=== PATIENT | male | born 1945 | race Caucasian/White ===

== ENCOUNTER → 2019-03-20 08:28 | Outpatient (BNVA) | payer MEDICARE, OTHER, SELFPAY | PROVIDERS: Family Provider Family Medicine; PCP Family Medicine; Visit Provider Specialist | DX: G25.0 Essential tremor (principal); R25.1 Tremor, unspecified | CPT/HCPCS: 80053; 84443; 99213 ==

== ENCOUNTER 2019-03-20 09:50 | Outpatient (CLI) | payer MEDICARE, OTHER, SELFPAY ==
[2019-03-20 10:38] LABS: Alanine Aminotransferase 15 U/L (0-41); Albumin Level 4.3 g/dL (3.5-5.2); Alkaline Phosphatase 102 IU/L (40-130); Anion Gap 13.7 (5-19); Aspartate Amino Transferase 17 U/L (0-40); Blood Urea Nitrogen 10 mg/dL (8-23); Calcium 9.8 mg/dL (8.5-10.5); Carbon Dioxide 32 mmol/L (22-29); Chloride 101 mmol/L (98-107); Globulin 3.6 g/dL (1.3-4.6); Glucose 116 mg/dL (74-106); Potassium 4.7 mmol/L (3.5-5.1); Sodium 142 mmol/L (136-145); Thyroid Stimulating Hormone 2.37 uIU/mL (0.27-4.20); Total Bilirubin 0.4 mg/dL (0.15-1.2); Total Protein 7.9 g/dL (6.6-8.7)
== END 2019-03-20 09:51 | disposition home or self-care (01) ==
LOC: LAB 09:51
PROVIDERS: Family Provider Family Medicine; PCP Family Medicine; Visit Provider Specialist
DX: R25.1 Tremor, unspecified (principal)
CPT/HCPCS: 80053; 84443

== ENCOUNTER → 2019-09-24 13:47 | Outpatient (BNVA) | payer MEDICARE, OTHER, SELFPAY | PROVIDERS: Family Provider Family Medicine; PCP Family Medicine; Visit Provider Nurse Practitioner Family | DX: Z20.828 Contact with and (suspected) exposure to other viral communicable diseases (principal) | CPT/HCPCS: 87635 ==

== ENCOUNTER → 2019-09-27 14:16 | Outpatient (BNVA) | payer MEDICARE, OTHER, SELFPAY | PROVIDERS: Family Provider Family Medicine; PCP Family Medicine; Visit Provider Internal Medicine | DX: Z20.828 Contact with and (suspected) exposure to other viral communicable diseases (principal) | CPT/HCPCS: 87635 ==

== ENCOUNTER → 2019-10-03 15:19 | Outpatient (BNVA) | payer MEDICARE, OTHER, SELFPAY | PROVIDERS: Family Provider Family Medicine; PCP Family Medicine; Referring Provider Dermatology; Visit Provider Dermatology | DX: Z12.83 Encounter for screening for malignant neoplasm of skin (principal); D18.01 Hemangioma of skin and subcutaneous tissue; L81.8 Other specified disorders of pigmentation; L21.9 Seborrheic dermatitis, unspecified; L82.1 Other seborrheic keratosis; D23.39 Other benign neoplasm of skin of other parts of face; B35.1 Tinea unguium | CPT/HCPCS: 99203; 99204 ==

== ENCOUNTER 2019-10-06 12:22 | Emergency (ER) | payer MEDICARE, OTHER, SELFPAY ==
[2019-10-06] VITALS (27 sets, daily range): BP systolic 113–171; BP diastolic 69–134; PULSE 55–66; RESP 6–99; O2SAT 78–100; BMI 23.1
[2019-10-06] MEDS: succinylcholine 20 mg/mL SDV 10mL 90 MG IVP (12:43)
[2019-10-06] MEDS: propofol 1,000 MG/100 ML INJ 2.4 MG (12:45)
[2019-10-06] MEDS: fentaNYL 50 mcg/mL INJ 2mL 100 MCG IVP (12:56)
[2019-10-06] MEDS: fentaNYL 50 mcg/mL INJ 2mL 200 MCG IVP (13:10)
--- NOTE | 2019-10-06 13:15 | CTR_ITS ---
PROCEDURE INFORMATION: Exam: CT Head Without Contrast Exam date and time: 10/06/2019 1:17 PM Age: 73 years old Clinical indication: Injury or trauma; Initial encounter; Blunt trauma (contusions or hematomas); With loss of consciousness; Not specified; Patient HX: Approx. 15ft fall TECHNIQUE: Imaging protocol: Computed tomography of the head without contrast. Radiation optimization: All CT scans at this facility use at least one of these dose optimization techniques: automated exposure control; mA and/or kV adjustment per patient size (includes targeted exams where dose is matched to clinical indication); or iterative reconstruction. COMPARISON: No relevant prior studies available. RADIATION DOSE METRICS: Total DLP (mGy-cm): 1520.3 FINDINGS: Brain: 1 mm punctate hyperdensities in the right parietal white matter (series 5: Images 35 and 45), suggesting small hemorrhages in association with trauma. No significant surrounding edema or mass effect. Symmetric prominence of the cortical and cerebellar sulci. Mild small vessel ischemic change. Ventricles: Normal configuration of the ventricles. Bones/joints: No acute calvarial injury. Sinuses: No sinus fluid. Mastoid air cells: No mastoid effusion. Vasculature: Vascular and dural calcifications. Soft tissues: Large scalp hematoma and subcutaneous emphysema about the right posterior vertex. Multiple cutaneous calcifications. CT/CT head wo con* [id number] IMPRESSION: 1. Large scalp hematoma and subcutaneous emphysema about the right posterior vertex. 2. 1 mm punctate hyperdensities in the right parietal white matter (series 5: Images 35 and 45), suggesting small hemorrhages in association with trauma. The aforementioned findings initiated a critical results communication pathway. An addendum will be issued at the time of clincian notification. Radiation Dose CTDIVOL = (mGy): DLP = 1520.3 (mGy-cm)
--- NOTE | 2019-10-06 13:15 | CTR_ITS ---
PROCEDURE INFORMATION: Exam: CT Chest With Contrast Exam date and time: 10/06/2019 1:28 PM Age: 73 years old Clinical indication: Injury or trauma; Initial encounter; Generalized; Blunt trauma (contusions or hematomas); Patient HX: Approx. 15 ft fall TECHNIQUE: Imaging protocol: Computed tomography of the chest with intravenous contrast. Radiation optimization: All CT scans at this facility use at least one of these dose optimization techniques: automated exposure control; mA and/or kV adjustment per patient size (includes targeted exams where dose is matched to clinical indication); or iterative reconstruction. Contrast material: VISI 320; Contrast volume: 95 ml; Contrast route: INTRAVENOUS (IV); COMPARISON: No relevant prior studies available. RADIATION DOSE METRICS: Total DLP (mGy-cm): 2509.03 FINDINGS: Tubes, catheters and devices: Endotracheal tube/ Lungs: Minimal bibasilar atelectasis. Pleural space: Right pleural tube, very small right pneumothorax. No pleural effusion. Heart: No cardiomegaly. No pericardial effusion. Aorta: No aortic aneurysm. Lymph nodes: No significant adenopathy. Bones/joints: Nondisplaced right posterior 10th rib fracture. Soft tissues: Subcutaneous emphysema in the right chest wall. IMPRESSION: Nondisplaced right posterior 10th rib fracture. Very small right pneumothorax, right pleural tube in place. Endotracheal tube. PROCEDURE INFORMATION: Exam: CT Abdomen And Pelvis With Contrast Exam date and time: 10/06/2019 1:28 PM Age: 73 years old Clinical indication: Injury or trauma; Initial encounter; Generalized; Blunt trauma (contusions or hematomas); Patient HX: Approx. 15 ft fall TECHNIQUE: Imaging protocol: Computed tomography of the abdomen and pelvis with intravenous contrast. Radiation optimization: All CT scans at this facility use at least one of these dose optimization techniques: automated exposure control; mA and/or kV adjustment per patient size (includes targeted exams where dose is matched to clinical indication); or iterative reconstruction. Contrast material: VISI 320; Contrast volume: 95 ml; Contrast route: INTRAVENOUS (IV); COMPARISON: No relevant prior studies available. RADIATION DOSE METRICS: Total DLP (mGy-cm): 2509.03 FINDINGS: Liver: No mass. Gallbladder and bile ducts: Unremarkable. No ductal dilation. Pancreas: Normal. No ductal dilation. Spleen: Normal. No splenomegaly. Adrenals: Normal. No mass. Kidneys and ureters: Normal. No hydronephrosis. Stomach and bowel: No acute findings. No obstruction. No mucosal thickening. Appendix: No evidence of appendicitis. Intraperitoneal space: Unremarkable. No free air. No significant fluid collection. Vasculature: No abdominal aortic aneurysm. Lymph nodes: No significant adenopathy. Bladder: Unremarkable as visualized. Reproductive: Unremarkable as visualized. Bones/joints: No acute findings. Soft tissues: Left femoral prosthesis, metallic artifact. CT/CT chest abd pel w con* IMPRESSION: No acute findings. Radiation Dose CTDIVOL = (mGy): DLP = 2509.03~2509.03 (mGy-cm)
--- NOTE | 2019-10-06 13:15 | CTR_ITS ---
PROCEDURE INFORMATION: Exam: CT Cervical Spine Without Contrast Exam date and time: 10/06/2019 1:17 PM Age: 73 years old Clinical indication: Injury or trauma; Initial encounter; Blunt trauma; Patient HX: Approx. 15ft fall TECHNIQUE: Imaging protocol: Computed tomography images of the cervical spine without contrast. Radiation optimization: All CT scans at this facility use at least one of these dose optimization techniques: automated exposure control; mA and/or kV adjustment per patient size (includes targeted exams where dose is matched to clinical indication); or iterative reconstruction. COMPARISON: No relevant prior studies available. RADIATION DOSE METRICS: Total DLP (mGy-cm): 772.83 FINDINGS: Tubes, catheters and devices: Endotracheal tube. Vertebrae: No acute bony injury or malalignment in the cervical spine. Discs/Spinal canal/Neural foramina: Multilevel spinal stenosis in association with disc bulging and degenerative change. The AP dimension of the central canal measures 6 mm at the C5-C6 level. Note that assessment of disc, spinal cord, and nerve root pathology is limited in the absence of intrathecal contrast. Soft tissues: Punctate calcification in the left masseter muscle. Ligamentous calcification. Lungs: Unremarkable apices as visualized. CT/CT cervical spin wo con* [id number] IMPRESSION: 1. No acute bony injury or malalignment in the cervical spine. 2. Nontraumatic findings as described above. Radiation Dose CTDIVOL = (mGy): DLP = 772.83 (mGy-cm)
[2019-10-06] MEDS: iodixanol 320 mg/mL 100mL Btl IV (13:27)
[2019-10-06] MEDS: midazolam 1 mg/mL INJ 2 mL 5 MG IVP (13:39)
--- NOTE | 2019-10-06 13:40 | XRR_ITS ---
PROCEDURE INFORMATION: Exam: XR Chest, 1 View Exam date and time: 10/06/2019 1:41 PM Age: 73 years old Clinical indication: Device placement; Other: Chest tube and et; Additional info: Post intubation TECHNIQUE: Imaging protocol: XR of the chest Views: 1 view. COMPARISON: CR Chest 1 [place] [id number] 03/04/2016 4:05 PM FINDINGS: Lungs: Minimal left basilar atelectasis. Pleural space: Right pleural tube in place, no definite pneumothorax. Endotracheal tube tip approximately 5 cm above the eulalia. Heart/Mediastinum: Possible minimal cardiomegaly. Bones/joints: No acute findings. XR/XR chest 1V portable [id number] IMPRESSION: Right pleural tube, endotracheal tube.
[2019-10-06 13:41] LABS: Alveolar-Arterial Oxygen Gradi 53.7 mmHg (5-10); Arterial Blood Gas Hematocrit 44.3 % (42-52); Base Excess ABG 1.9 mmol/L (-2.0-2.0); Blood Gas Allen Test Pos; Blood Gas Operator Identificat glc; Blood Gas Sample Site Radial, right; Blood Gas Sample Type Arterial; Carboxyhemoglobin 0.7 %THgb (0.4-20.1); HCO3 ABG 27.1 mmol/L (22-26); HGB O2 Sat 98.5 % (95-100); Ionized Calcium Level - ABG 1.2 mmol/L (1.1-1.4); Methemoglobin 0.9 % (0.4-1.5); Oxygen Device VENT; Oxygen Saturation ABG > 100.0; Potassium Level - ABG 4.3 mmol/L (3.5-5.0); Total Hemoglobin 14.4 g/dL (14-18)
[2019-10-06 13:42] LABS: ABG PCO2 43.3 mmHg (35-45); ABG PH Result 7.41 (7.35-7.45)
[2019-10-06] MEDS: ceFAZolin 1,000 MG in sodium chloride 0.9% (plus) 50 ML 100 MG IV (14:15)
--- NOTE | 2019-10-06 15:05 | W.ED.FALL ---
HPI - Fall General: Chief Complaint: Fall Stated Complaint: head injury Time Seen by Provider: 10/06/19 13:28 History of Present Illness: HPI Narrative: 73-year-old male presents via private vehicle on initial arrival he is lethargic with a GCS of 7-8. He is hypoxic and minimally responsive. Sats are in the mid to low 80s. He is accompanied by his grandson who reports he fell off a ladder approximately 15 feet he hit the back of his head on a rock as he landed and landed on his right side. He is been poorly responsive for him since then. In the exam room patient will open his eyes to verbal command he gives no verbal response at all and he will withdraw from pain giving him Glascow coma score of 8 however at times he will not open his eyes and not respond to pain at all is in addition, given him a GCS of 3. In addition to this he is hypoxic. Review of Systems General: Reports: ROS unobtainable due to medical condition and ROS unobtainable due to mental status PFS ED PFSH: Medical History Essential tremor History of pulmonary embolism Hypercholesteremia Hypertension Seborrheic dermatitis of scalp Family History Other CAD (coronary artery disease) Diabetes Hypertension Social History Smoking and tobacco status: never smoked Alcohol intake: current Alcohol intake frequency: few times a week Alcohol type: wine Physical Exam Const: EXAM LIMITATIONS: altered mental status GENERAL APPEARANCE: lethargic ORIENTATION/CONSCIOUSNESS: Yes lethargic HENMT: COMMON NORMALS: normocephalic HEAD & SCALP: normocephalic OTHER: Stellate scalp laceration. After patient had been stabilized the back of the head was shaved and the laceration was stapled at its center it was difficult to get good approximation however there is no active bleeding. Eye: COMMON NORMALS: Equal, round and reactive pupils present, conjunctivae normal and no scleral icterus CONJUNCTIVA: Yes conjunctivae normal PUPIL: Yes Equal, round and reactive pupils present Resp: COMMON NORMALS: No retractions, No use of accessory muscles and clear to auscultation bilaterally AUSCULTATION: clear to auscultation bilaterally Cardio: COMMON NORMALS: regular rate, regular rhythm and No murmurs present (Cardio) RATE: regular rate RHYTHM: regular rhythm GI: COMMON NORMALS: Soft to palpation and No hepatosplenomegaly present AUSCULTATION: Yes normoactive bowel sounds PALPATION: Yes Soft to palpation, No Tenderness to palpation present (GI), No Guarding due to palpation present (GI) and Yes No hepatosplenomegaly present Extremity: COMMON NORMALS: normal to inspection, capillary refill normal, no clubbing, cyanosis or edema, no calf tenderness and no pedal edema Neuro: SENSORIUM/ORIENTATION: Yes lethargic Procedures Chest Tube Chest Tube 1: Chest Tube Location: right, mid axillary line and fourth interspace Size of Tube (cm): 28 Chest Tube Prep: Yes betadine prep Incision Made With: #11 blade Post Procedure: sutured to skin and sterile dressing applied Tube Drainage: none Post Procedure CXR?: Yes Patient Tolerated Procedure: Yes Progress: Initial needle decompression of the chest on the right side see notations. After that emergent placement of right-sided chest tube with a significant improvement of oxygenation after these procedures. Intubation sedative: Etomidate Mg Given: 40 paralytic: Succinylcholine Mg Given: 90 Laryngoscope: fiber optic video scope Assist Device Used: fiber optic device ET Tube Size: 8.5 ET Tube Uncuffed: Yes Tube Secured Depth (cm): 24 Tube Secured Location: teeth Tube Placement Confirmation: visualized tube passing through cords, equal breath sounds bilaterally, no breath sounds over epigastrium and confirmation by capnometry Patient Tolerated Procedure: well Intubation Complications: none Course Vital Signs: Vital signs: Vital Signs Pulse Rate 60 10/06/19 14:43 Respiratory Rate 14 10/06/19 14:43 Blood Pressure 148/79 10/06/19 14:43 Pulse Oximetry 97 10/06/19 14:43 MDM - Fall MDM Narrative: Medical decision making narrative: On initial presentation patient's Angie Coma Scale and hypoxia indicated intubation he was emergently intubated. Initially his sats improved and he had good tidal capnography however after a few minutes his sats suddenly dropped and whereas there had been good auscultate will sounds on the right suddenly there were no auscultated bowel breath sounds. Patient was emergently needle decompressed was significant outflow of air after needle decompression and he had some improvement of his sats. A right chest tube was then urgently placed and sutured into place with good improvement of saturations after placement of chest tube. CT head neck chest abdomen pelvis completed there is significant chronic pathology of the neck but nothing reported acute. I did discuss with the [facility] radiologist. There is punctate bleeding in the right parietal area. On the CT chest abdomen and pelvis there is a small residual right pneumothorax with a chest tube in place. Additionally there is a right 10th posterior rib fracture. The remainder the abdomen and pelvis are unremarkable. Patient transferred to [facility] due to hospitals in [place] being on divert. Patient stabilized and was transferred discussed with the family. Lab Data: Labs: Lab Results 10/06/19 Range/Units 13:31 Specimen Type Arterial Sample Site Radial, right ABG pH 7.41 (7.35-7.45) ABG pCO2 43.3 (35-45) mmHg ABG pO2 241.0 H (80.0-100.0) mmH g ABG HCO3 27.1 H (22-26) mmol/L ABG O2 Saturation > 100.0 ABG Base Excess 1.9 (-2.0-2.0) mmol/ L Jesus Test Pos A-a O2 Gradient 53.7 H (5-10) mmHg Hematocrit 44.3 (42-52) % Hgb O2 Saturation 98.5 (95-100) % Carboxyhemoglobin 0.7 (0.4-20.1) %THgb Methemoglobin 0.9 (0.4-1.5) % Total Hemoglobin 14.4 (14-18) g/dL Sodium 136.0 (131-143) mmol/L Potassium 4.3 (3.5-5.0) mmol/L Glucose 130.0 H (70-115) mg/dL Ionized Calcium 1.2 (1.1-1.4) mmol/L O2 Delivery Device Vent FiO2 100.0 % Tidal Volume 0.50 PEEP 5.0 cmH20 Senior Quality Control Inspector ID [id number] Critical Care Time Critical Care Time: Critical Care Time: Yes Total Critical Care Time: 90 Attestation: This case had a high probability of a clinically significant, sudden, or life threatening deterioration of this patient's condition which required my full and direct attention, intervention and personal management. Discharge Plan Discharge Patient Disposition: Transfer to ED Clinical Impression: Closed head injury with petechial brain hemorrhage, Closed traumatic fracture of ribs of right side with pneumothorax, Fall on and from ladder causing accidental injury Prescriptions: No Action potassium chloride 10 mEq capsule, extended release 10 meq PO DAILY RF: 0 cholecalciferol (vitamin D3) [Vitamin D3] 2,000 unit tablet 2,000 unit PO DAILY RF: 0 propranolol 40 mg tablet 40 mg PO BID Qty: 60 RF: 11 azithromycin 250 mg tablet See Rx Instructions PO .COMPLEX Qty: 6 RF: 0 ciclopirox 8 % solution 1 applic TOPICAL DAILY 28 Days Qty: 6.6 RF: 3 ketoconazole 2 % shampoo 1 applic TOPICAL .3 times weekly Qty: 120 RF: 3 ketoconazole 2 % cream 1 applic TOPICAL DAILY Qty: 30 RF: 4 simvastatin 40 mg tablet 40 mg PO DAILY RF: 0 Pradaxa 150 mg capsule 150 mg PO BID 90 Days Qty: 180 RF: 3 furosemide 20 mg tablet 20 mg PO DAILY PRN (Reason: edema) Qty: 30 RF: 6 primidone 50 mg tablet 50 mg PO DAILY PRN (Reason: tremor(s)) RF: 0 Referrals: Valencia Kwon MD [Primary Care Provider] - Interventions: ED Discharge Assessment Last Done: 10/06/19 14:43 ED Charges Last Done: 10/06/19 14:47 Discharge Date/Time: 10/06/19 14:55 Coding Level of Care Code ED Cigarette Making Machine Operator for Ellis Miller
== END 2019-10-06 14:55 ==
PROVIDERS: Emergency Provider Family Medicine; PCP Family Medicine
DX: R23.3 Spontaneous ecchymoses (principal); S27.0XXA Traumatic pneumothorax, initial encounter; S22.41XA Multiple fractures of ribs, right side, initial encounter for closed fracture; W11.XXXA Fall on and from ladder, initial encounter; I10 Essential (primary) hypertension
CPT/HCPCS: 12345; 31500; 32551; 36600; 51702; 70450; 71045; 71260; 72125; 74177; 80051; 82810; 83986; 87070; 87205; 94002; 94799; 96365; 96375; 96376; 99284; 99291; J0330; J0690; J2250; J2704; J3010; J3490; Q9967

== ENCOUNTER 2019-10-31 08:13 | Outpatient (RCR) | payer MEDICARE, OTHER, SELFPAY | END 2019-11-21 23:59 | disposition home or self-care (01) | LOC: SST 08:13 | PROVIDERS: PCP Family Medicine; Referring Provider Physical Medicine & Rehabilitation; Visit Provider Physical Medicine & Rehabilitation | DX: S06.890S Other specified intracranial injury without loss of consciousness, sequela (principal) | CPT/HCPCS: 92507; 92523 ==

== ENCOUNTER 2019-11-12 14:03 | Outpatient (CLI) | payer MEDICARE, OTHER, SELFPAY ==
--- NOTE | 2019-11-12 14:17 | XRR_ITS ---
PROCEDURE INFORMATION: Exam: XR Cervical Spine, 4 or 5 Views Exam date and time: 11/12/2019 2:36 PM Age: 73 years old Clinical indication: Condition or disease; Other: C5/c6 closed fracture TECHNIQUE: Imaging protocol: XR of the cervical spine, 4 or 5 views. COMPARISON: CT cervical spin wo con* [id number] 10/06/2019 1:05 PM FINDINGS: Vertebrae: There is an anterior fusion plate at C5/6. No evidence for hardware failure. No translation with flexion or extension.Degenerative change is identified in the spine. There is disc space narrowing and osteophyte formation especially at C6/7. Soft tissues: Unremarkable. XR/XR cervical spine 4-5V [id number] IMPRESSION: There are no acute concerning abnormalities.
== END 2019-11-12 14:04 | disposition home or self-care (01) ==
LOC: RAD 14:12
PROVIDERS: PCP Family Medicine; Visit Provider Family Medicine
DX: S12.490A Other displaced fracture of fifth cervical vertebra, initial encounter for closed fracture (principal); S12.500A Unspecified displaced fracture of sixth cervical vertebra, initial encounter for closed fracture; X58.XXXA Exposure to other specified factors, initial encounter
CPT/HCPCS: 72040; 72050

== ENCOUNTER 2019-11-22 06:00 | Outpatient (RCR) | payer MEDICARE, OTHER, SELFPAY | END 2019-12-22 23:59 | disposition home or self-care (01) | LOC: SST 06:00 | PROVIDERS: PCP Family Medicine; Referring Provider Physical Medicine & Rehabilitation; Visit Provider Physical Medicine & Rehabilitation | DX: S06.9X0A Unspecified intracranial injury without loss of consciousness, initial encounter (principal); W19.XXXA Unspecified fall, initial encounter; Y93.9 Activity, unspecified | CPT/HCPCS: 92507 ==

== ENCOUNTER 2019-12-23 06:00 | Outpatient (RCR) | payer MEDICARE, OTHER, SELFPAY | END 2020-01-21 23:59 | disposition home or self-care (01) | LOC: SST 06:00 | PROVIDERS: PCP Family Medicine; Referring Provider Physical Medicine & Rehabilitation; Visit Provider Physical Medicine & Rehabilitation | DX: S06.9X0S Unspecified intracranial injury without loss of consciousness, sequela (principal); W19.XXXS Unspecified fall, sequela | CPT/HCPCS: 92507 ==

== ENCOUNTER 2020-01-22 06:00 | Outpatient (RCR) | payer MEDICARE, OTHER, SELFPAY | END 2020-02-21 23:59 | disposition home or self-care (01) | LOC: SST 06:00 | PROVIDERS: PCP Family Medicine; Referring Provider Physical Medicine & Rehabilitation; Visit Provider Physical Medicine & Rehabilitation | DX: S06.9X9S Unspecified intracranial injury with loss of consciousness of unspecified duration, sequela (principal) | CPT/HCPCS: 92507 ==

== ENCOUNTER → 2020-02-14 11:17 | Outpatient (BNVA) | payer MEDICARE, OTHER, SELFPAY | PROVIDERS: PCP Family Medicine; Visit Provider Nurse Practitioner Family | DX: Z20.828 Contact with and (suspected) exposure to other viral communicable diseases (principal) | CPT/HCPCS: 87635 ==

== ENCOUNTER 2020-02-22 06:00 | Outpatient (RCR) | payer MEDICARE, OTHER, SELFPAY | END 2020-03-23 23:59 | disposition home or self-care (01) | LOC: SST 06:00 | PROVIDERS: PCP Family Medicine; Referring Provider Physical Medicine & Rehabilitation; Visit Provider Physical Medicine & Rehabilitation | DX: R47.02 Dysphasia (principal) | CPT/HCPCS: 92507 ==

== ENCOUNTER → 2020-03-19 09:17 | Outpatient (BNVA) | payer MEDICARE, OTHER, SELFPAY | PROVIDERS: PCP Family Medicine; Visit Provider Specialist | DX: G25.0 Essential tremor (principal); S06.0X9D Concussion with loss of consciousness of unspecified duration, subsequent encounter; S12.490A Other displaced fracture of fifth cervical vertebra, initial encounter for closed fracture; Y93.9 Activity, unspecified; R41.3 Other amnesia | CPT/HCPCS: 96116; 99214 ==

== ENCOUNTER 2020-03-24 06:00 | Outpatient (RCR) | payer MEDICARE, OTHER, SELFPAY | END 2020-04-20 23:59 | disposition home or self-care (01) | LOC: SST 06:00 | PROVIDERS: PCP Family Medicine; Referring Provider Physical Medicine & Rehabilitation; Visit Provider Physical Medicine & Rehabilitation | DX: S06.9X0S Unspecified intracranial injury without loss of consciousness, sequela (principal); X58.XXXS Exposure to other specified factors, sequela | CPT/HCPCS: 92507 ==

== ENCOUNTER 2020-04-21 06:00 | Outpatient (RCR) | payer MEDICARE, OTHER, SELFPAY | END 2020-05-21 23:59 | disposition home or self-care (01) | LOC: SST 06:00 | PROVIDERS: PCP Family Medicine; Referring Provider Physical Medicine & Rehabilitation; Visit Provider Physical Medicine & Rehabilitation | DX: S06.9X9S Unspecified intracranial injury with loss of consciousness of unspecified duration, sequela (principal); X58.XXXS Exposure to other specified factors, sequela | CPT/HCPCS: 92507 ==

== ENCOUNTER 2020-05-13 15:21 | Outpatient (CLI) | payer MEDICARE, OTHER, SELFPAY ==
--- NOTE | 2020-05-13 15:00 | USCV_ITS ---
Hayes Cisneros Age: 74 Gender: M : 1945 Exam Date: 05/13/2020 15:42 Ordering Phys: Jess Jeff MD ([email or web address]) Technologist: MATHEW [place] [facility] [place]: HISTORY OF PE. HISTORY: History of PE PROCEDURES: The venous duplex Doppler examination of both lower extremities was performed in the standard fashion. The following venous structures were evaluated: common femoral vein, profunda vein, proximal portion of the greater saphenous vein, superficial femoral vein, and the popliteal vein. In addition, the posterior tibial and peroneal trunk were evaluated. Serial compression, augmentation maneuvers, and spectral Doppler flow evaluation were performed. FINDINGS: No DVT seen in any vessel examined CONCLUSIONS No evidence of DVT in the above-mentioned identifiable veins. Dr Isis Escudero MD [facility] (Electronically Signed) Final Date: 14 May 2020 09:17 S
== END 2020-05-13 15:22 | disposition home or self-care (01) ==
LOC: RAD 15:26
PROVIDERS: PCP Family Medicine; Visit Provider Internal Medicine Cardiovascular Disease
DX: I82.409 Acute embolism and thrombosis of unspecified deep veins of unspecified lower extremity (principal); Z86.711 Personal history of pulmonary embolism
CPT/HCPCS: 93970

== ENCOUNTER → 2020-08-18 08:01 | Outpatient (BNVA) | payer MEDICARE, OTHER, SELFPAY | PROVIDERS: PCP Family Medicine; Visit Provider Specialist | DX: G25.0 Essential tremor (principal); S06.0X9D Concussion with loss of consciousness of unspecified duration, subsequent encounter; S12.490D Other displaced fracture of fifth cervical vertebra, subsequent encounter for fracture with routine healing; Y93.9 Activity, unspecified; R20.0 Anesthesia of skin; I10 Essential (primary) hypertension | CPT/HCPCS: 99213; 99214 ==

== ENCOUNTER → 2020-08-27 10:05 | Outpatient (BNVA) | payer MEDICARE, OTHER, SELFPAY | PROVIDERS: PCP Family Medicine; Visit Provider Family Medicine | DX: I10 Essential (primary) hypertension (principal); R20.0 Anesthesia of skin; Z00.00 Encounter for general adult medical examination without abnormal findings; G25.0 Essential tremor; E78.00 Pure hypercholesterolemia, unspecified | CPT/HCPCS: 80053; 80061; 84443; 85025 ==

== ENCOUNTER → 2020-12-03 08:16 | Outpatient (BNVA) | payer MEDICARE, OTHER, SELFPAY | PROVIDERS: PCP Family Medicine; Visit Provider Urology | DX: Z12.5 Encounter for screening for malignant neoplasm of prostate (principal); N52.9 Male erectile dysfunction, unspecified; N40.1 Benign prostatic hyperplasia with lower urinary tract symptoms | CPT/HCPCS: 81003; 84153 ==

== ENCOUNTER → 2021-08-18 08:17 | Outpatient (BNVA) | payer MEDICARE, OTHER, SELFPAY | PROVIDERS: PCP Family Medicine; Visit Provider Specialist | DX: G25.0 Essential tremor (principal); Z87.820 Personal history of traumatic brain injury | CPT/HCPCS: 99213; 99214 ==

== ENCOUNTER 2021-08-25 20:00 | Outpatient (CLI) | payer MEDICARE, OTHER, SELFPAY | END 2021-08-25 20:01 | disposition home or self-care (01) | LOC: SLEEP 08-26 08:49 | PROVIDERS: PCP Family Medicine; Visit Provider Family Medicine | DX: G47.33 Obstructive sleep apnea (adult) (pediatric) (principal) | CPT/HCPCS: 95811 ==

== ENCOUNTER → 2021-11-25 09:48 | Outpatient (BNVA) | payer MEDICARE, OTHER, SELFPAY | PROVIDERS: PCP Family Medicine; Visit Provider Podiatrist Foot & Ankle Surgery | DX: S92.425A Nondisplaced fracture of distal phalanx of left great toe, initial encounter for closed fracture (principal); W22.8XXA Striking against or struck by other objects, initial encounter | CPT/HCPCS: 73610; 99204 ==

== ENCOUNTER → 2021-11-30 09:14 | Outpatient (BNVA) | payer MEDICARE, OTHER, SELFPAY | PROVIDERS: PCP Family Medicine; Visit Provider Nurse Practitioner Family | DX: N40.1 Benign prostatic hyperplasia with lower urinary tract symptoms (principal); N52.9 Male erectile dysfunction, unspecified; R35.1 Nocturia; N13.8 Other obstructive and reflux uropathy | CPT/HCPCS: 51741; 51798; 81003; 99213; 99214 ==

== ENCOUNTER → 2021-12-09 09:05 | Outpatient (BNVA) | payer MEDICARE, OTHER, SELFPAY | PROVIDERS: PCP Family Medicine; Visit Provider Podiatrist Foot & Ankle Surgery | DX: S92.425D Nondisplaced fracture of distal phalanx of left great toe, subsequent encounter for fracture with routine healing (principal); W22.09XD Striking against other stationary object, subsequent encounter | CPT/HCPCS: 99213 ==

== ENCOUNTER → 2021-12-29 14:08 | Outpatient (BNVA) | payer MEDICARE, OTHER, SELFPAY | PROVIDERS: PCP Family Medicine; Visit Provider Nurse Practitioner Family | DX: I27.82 Chronic pulmonary embolism (principal); R06.00 Dyspnea, unspecified; I26.99 Other pulmonary embolism without acute cor pulmonale; E78.00 Pure hypercholesterolemia, unspecified | CPT/HCPCS: 36415; 80048; 83880; 85025; 85378; 93005; 99214 ==

== ENCOUNTER 2021-12-31 07:21 | Outpatient (CLI) | payer MEDICARE, OTHER, SELFPAY ==
--- NOTE | 2021-12-31 07:30 | CT_ITS ---
WS: [id number] CT CHEST ANGIOGRAPHY WITH REFORMATS HISTORY: acute dyspnea at rest and with exertion TECHNIQUE: Contiguous axial images are obtained through the chest during arterial injection of intrav enous contrast. Images are reconstructed to evaluate the pulmonary arteries. MIP imaging also reviewe d. All CT scans at [facility] use at least one of these dose optimization techniques: automat ed exposure control; mA and/or kV adjustment per patient size (includes targeted exams where dose is matched to clinical indication); or iterative reconstruction. CONTRAST: Omnipaque 350; 95 mL IV. DLP: 604.54 mGy.cm COMPARISON: 10/06/2019 Bilateral upper and lower lobe pulmonary emboli are identified. Nonocclusive filling defect in the di stal RIGHT lower lobe pulmonary artery. There are additional filling defects extending into the segme ntal and subsegmental branches bilaterally, greatest in the lower lobes. There are additional filling defects in the upper lobes also. Lung volumes are decreased due to poor inspiration. Mild RIGHT hear t enlargement. No definite RIGHT heart strain. Small hiatal hernia. Bilateral enlarged hilar lymph nodes measuring up to 13 mm. These could be react alfredito. No change in the 6 mm low-attenuation nodule in the RIGHT lobe of the liver. No adrenal mass. At rophied pancreas. No destructive bone lesions. CT/CT angio chest PE protcl [id number] IMPRESSION: 1. Bilateral pulmonary emboli. These are predominantly within the segmental an d subsegmental branches with the greatest distribution in the lower lobes. 2. Mild RIGHT heart enlargement. 3. No pneumonia. 4. Bilateral hilar lymphadenopathy may be reactive. Notified ANGELINE Cintron at 12/31/2021 9:49 AM.
[2021-12-31] MEDS: iohexol 350 mg/mL 500 mL Btl (per mL) IV (07:57)
== END 2021-12-31 07:22 | disposition home or self-care (01) ==
LOC: RAD 07:23
PROVIDERS: PCP Family Medicine; Visit Provider Nurse Practitioner Family
DX: I26.99 Other pulmonary embolism without acute cor pulmonale (principal); I51.7 Cardiomegaly
CPT/HCPCS: 71275

== ENCOUNTER → 2022-01-29 08:59 | Outpatient (BNVA) | payer MEDICARE, OTHER, SELFPAY | PROVIDERS: PCP Family Medicine; Visit Provider Urology | DX: N40.1 Benign prostatic hyperplasia with lower urinary tract symptoms (principal); R35.1 Nocturia; G47.33 Obstructive sleep apnea (adult) (pediatric); Z99.89 Dependence on other enabling machines and devices | CPT/HCPCS: 81003; 99213 ==

== ENCOUNTER → 2022-03-08 15:23 | Outpatient (BNVA) | payer MEDICARE, OTHER, SELFPAY | PROVIDERS: PCP Family Medicine; Visit Provider Internal Medicine | DX: I26.09 Other pulmonary embolism with acute cor pulmonale (principal); I10 Essential (primary) hypertension; R06.02 Shortness of breath | CPT/HCPCS: 99214 ==

== ENCOUNTER 2022-03-25 20:00 | Outpatient (CLI) | payer MEDICARE, OTHER, SELFPAY | END 2022-03-25 20:01 | disposition home or self-care (01) | LOC: SLEEP 03-26 06:02 | PROVIDERS: PCP Family Medicine; Visit Provider Family Medicine | DX: G47.33 Obstructive sleep apnea (adult) (pediatric) (principal) | CPT/HCPCS: 95811 ==

== ENCOUNTER 2022-03-29 07:41 | Outpatient (CLI) | payer MEDICARE, OTHER, SELFPAY ==
--- NOTE | 2022-03-29 08:00 | USCV_ITS ---
Hayes Cisneros Age: 76 Gender: M : 1945 Exam Date: 03/29/2022 08:26 Ordering Phys: Ryan Rabago M.D ([email or web address]) Technologist: Magen Avila [place] [facility] [place]: shortness of breath BP: 130 / 72 HR: 54 Rhythm: Sinus Technical Quality: Adequate MEASUREMENTS (Male / Female) Normal Values 2D ECHO LV Diastolic Diameter PLAX 5.4 cm 4.2 - 5.9 / 3.9 - 5.3 cm LV Systolic Diameter PLAX 3.2 cm IVS Diastolic Thickness 1.1 cm 0.6 - 1.0 / 0.6 - 0.9 cm IVS Systolic Thickness 1.5 cm LVPW Diastolic Thickness 1.1 cm 0.6 - 1.0 / 0.6 - 0.9 cm LVPW Systolic Thickness 1.7 cm LV Ejection Fraction 2D Teich 71.2 % LV Ejection Fraction MOD 2C 66.0 % LV Ejection Fraction 2C AL 67.4 % LA Diameter 3.6 cm LA Width 3.9 cm LA Height 5.7 cm RA Width 5.3 cm RA Height 5.3 cm Aorta at Sinotubular Diameter 2.4 cm IVC Diameter 1.8 cm M-MODE Aortic Annulus Diameter 2.9 cm LA Ao Ratio MM 1.4 MV E Point Septal Separation 0.5 cm DOPPLER AV Peak Velocity 156.3 cm/s LVOT Peak Velocity 102.0 cm/s MV Peak Velocity 87.0 cm/s MV Area PHT 4.4 cm squared Mitral E to A Ratio 1.2 MV E' Velocity 43.0 cm/s Mitral E to MV E' Ratio 7.0 Mitral E to LV E' Lateral Ratio 6.8 Mitral E to LV E' Septal Ratio 7.2 TR Peak Velocity 413.8 cm/s TR Peak Gradient 68.5 mmHg TR Mean Velocity 332.2 cm/s TR Mean Gradient 46.8 mmHg TR Velocity Time Integral 138.4 cm Right Atrial Pressure 3.0 mmHg Pulmonary Artery Systolic Pressu 71.5 mmHg PV Peak Velocity 82.7 cm/s RV Acceleration Time 0.1 s RV Ejection Time 0.4 s RV AcT/ET 0.3 FINDINGS Left Ventricle Left ventricle is normal in size. LV systolic function is normal with EF 55 to 60%. No regional wall motion abnormalities are seen. Diastolic function is normal. Right Ventricle Normal in size and function Right Atrium Dilated. Left Atrium Normal in size Mitral Valve Structurally normal mitral valve. Trace mitral regurgitation. Aortic Valve Structurally normal aortic valve. No significant stenosis or regurgitation seen. Tricuspid Valve Mild tricuspid regurgitation. Insufficient TR jet to evaluate RVSP. Pulmonic Valve Not well-visualized. Mild pulmonic regurgitation. Pericardium Normal Aorta Normal in size IVC Appears to be normal CONCLUSIONS Left ventricle is normal in size. LV systolic function is normal with EF 55 to 60% Diastolic function is normal. Right atrial dilation Trace mitral regurgitation Mild tricuspid regurgitation Mild pulmonic regurgitation Compared to prior echocardiogram from 2019, no significant changes seen. Ryan Rabago MD (Electronically Signed) Final Date: 06 April 2022 17:22 S
== END 2022-03-29 07:42 | disposition home or self-care (01) ==
LOC: RAD 07:42
PROVIDERS: PCP Family Medicine; Visit Provider Internal Medicine
DX: R06.02 Shortness of breath (principal); I08.1 Rheumatic disorders of both mitral and tricuspid valves
CPT/HCPCS: 93306

== ENCOUNTER → 2022-08-12 10:48 | Outpatient (BNVA) | payer MEDICARE, OTHER, SELFPAY | PROVIDERS: PCP Family Medicine; Visit Provider Specialist | DX: I10 Essential (primary) hypertension (principal); E78.00 Pure hypercholesterolemia, unspecified; I27.82 Chronic pulmonary embolism; I26.09 Other pulmonary embolism with acute cor pulmonale; Z79.01 Long term (current) use of anticoagulants | CPT/HCPCS: 99214 ==

== ENCOUNTER → 2022-08-18 07:55 | Outpatient (BNVA) | payer MEDICARE, OTHER, SELFPAY | PROVIDERS: PCP Family Medicine; Visit Provider Specialist | DX: G25.0 Essential tremor (principal) | CPT/HCPCS: 99213 ==

== ENCOUNTER → 2022-11-25 14:07 | Outpatient (BNVA) | payer MEDICARE, OTHER, SELFPAY | PROVIDERS: PCP Family Medicine; Visit Provider Nurse Practitioner Family | DX: L81.4 Other melanin hyperpigmentation (principal); L57.8 Other skin changes due to chronic exposure to nonionizing radiation; L57.0 Actinic keratosis; D18.01 Hemangioma of skin and subcutaneous tissue | CPT/HCPCS: 17000; 99213 ==

== ENCOUNTER → 2023-01-11 11:14 | Outpatient (BNVA) | payer MEDICARE, OTHER, SELFPAY | PROVIDERS: PCP Family Medicine; Visit Provider Family Medicine | DX: I10 Essential (primary) hypertension (principal); E78.00 Pure hypercholesterolemia, unspecified; Z12.5 Encounter for screening for malignant neoplasm of prostate; N40.1 Benign prostatic hyperplasia with lower urinary tract symptoms; N52.9 Male erectile dysfunction, unspecified; R35.0 Frequency of micturition; G47.33 Obstructive sleep apnea (adult) (pediatric); G25.0 Essential tremor | CPT/HCPCS: 80053; 80061; 85025; G0103 ==

== ENCOUNTER → 2023-05-05 14:09 | Outpatient (BNVA) | payer MEDICARE, SELFPAY | PROVIDERS: PCP Family Medicine; Visit Provider Internal Medicine | DX: I27.82 Chronic pulmonary embolism (principal); I26.09 Other pulmonary embolism with acute cor pulmonale; I10 Essential (primary) hypertension | CPT/HCPCS: 99214 ==

== ENCOUNTER → 2023-08-17 07:56 | Outpatient (BNVA) | payer MEDICARE, SELFPAY | PROVIDERS: PCP Family Medicine; Visit Provider Specialist | DX: G25.0 Essential tremor | CPT/HCPCS: 99213 ==

== ENCOUNTER → 2023-11-29 14:12 | Outpatient (BNVA) | payer MEDICARE, SELFPAY | PROVIDERS: PCP Family Medicine; Visit Provider Dermatology | DX: L81.4 Other melanin hyperpigmentation (principal); L57.8 Other skin changes due to chronic exposure to nonionizing radiation; L82.1 Other seborrheic keratosis; D22.5 Melanocytic nevi of trunk; L73.8 Other specified follicular disorders; L57.0 Actinic keratosis; L91.8 Other hypertrophic disorders of the skin | CPT/HCPCS: 17000; 99213 ==

== ENCOUNTER → 2024-01-10 11:51 | Outpatient (BNVA) | payer MEDICARE, SELFPAY | PROVIDERS: PCP Family Medicine; Visit Provider Family Medicine | DX: I10 Essential (primary) hypertension (principal); E78.00 Pure hypercholesterolemia, unspecified; K92.1 Melena; G47.33 Obstructive sleep apnea (adult) (pediatric); G25.0 Essential tremor | CPT/HCPCS: 80053; 80061; 85025 ==

== ENCOUNTER → 2024-02-02 15:05 | Outpatient (BNVA) | payer MEDICARE, SELFPAY | PROVIDERS: PCP Family Medicine; Visit Provider Internal Medicine Cardiovascular Disease | DX: I10 Essential (primary) hypertension (principal); Z86.711 Personal history of pulmonary embolism; Z79.01 Long term (current) use of anticoagulants; Z86.718 Personal history of other venous thrombosis and embolism; Z87.898 Personal history of other specified conditions | CPT/HCPCS: 99213 ==

== ENCOUNTER → 2024-04-18 12:38 | Outpatient (BNVA) | payer MEDICARE, SELFPAY | PROVIDERS: PCP Family Medicine; Referring Provider Family Medicine; Visit Provider Specialist | DX: G25.0 Essential tremor (principal); R26.9 Unspecified abnormalities of gait and mobility; S06.0X9D Concussion with loss of consciousness of unspecified duration, subsequent encounter; I10 Essential (primary) hypertension; X58.XXXD Exposure to other specified factors, subsequent encounter | CPT/HCPCS: 99215 ==

== ENCOUNTER → 2024-08-22 15:19 | Outpatient (BNVA) | payer MEDICARE, SELFPAY | PROVIDERS: PCP Family Medicine; Referring Provider Family Medicine; Visit Provider Specialist | DX: G25.0 Essential tremor (principal); R26.9 Unspecified abnormalities of gait and mobility; S06.0X9D Concussion with loss of consciousness of unspecified duration, subsequent encounter; X58.XXXD Exposure to other specified factors, subsequent encounter | CPT/HCPCS: 99214 ==

== ENCOUNTER → 2024-10-10 09:27 | Outpatient (BNVA) | payer MEDICARE, SELFPAY | PROVIDERS: PCP Family Medicine; Visit Provider Internal Medicine Cardiovascular Disease | DX: I10 Essential (primary) hypertension (principal); G25.0 Essential tremor; Z86.718 Personal history of other venous thrombosis and embolism; Z79.01 Long term (current) use of anticoagulants | CPT/HCPCS: 99214 ==

== ENCOUNTER → 2024-12-03 14:09 | Outpatient (BNVA) | payer MEDICARE, SELFPAY | PROVIDERS: PCP Family Medicine; Visit Provider Dermatology | DX: L21.8 Other seborrheic dermatitis (principal); D18.01 Hemangioma of skin and subcutaneous tissue; L82.1 Other seborrheic keratosis; L85.3 Xerosis cutis; L81.4 Other melanin hyperpigmentation; L57.8 Other skin changes due to chronic exposure to nonionizing radiation; L82.0 Inflamed seborrheic keratosis; R20.8 Other disturbances of skin sensation; L53.8 Other specified erythematous conditions; L57.0 Actinic keratosis | CPT/HCPCS: 17000; 17110; 99214 ==

== ENCOUNTER 2025-01-03 07:06 | Outpatient (CLI) | payer MEDICARE, SELFPAY ==
--- NOTE | 2025-01-03 07:14 | MR_ITS ---
WS: [id number] MRI HEAD WITHOUT CONTRAST TECHNIQUE: Sagittal T1, T2 axial, T2 axial FLAIR, axial and coronal T1 images, axial susceptibility weighted imaging, axial diffusion weighted images, and coronal T2 images were obtained. CLINICAL INFORMATION: essential tremor, parkinsons FINDINGS: No evidence of restricted diffusion to suggest acute ischemia. Mild small vessel changes. Moderate parenchymal volume loss. Normal posterior fossa. Normal vascular flow voids at the skull base. No extra-axial fluid collections. Paranasal sinuses and mastoid air cells are well aerated. Normal posterior nasopharynx. No hemosiderin on the susceptibility weighted images. Normal optic chiasm and pituitary infundibulum. Mild symmetric atrophy temporal lobes and hippocampal formations. No other suspicious findings.. MR/MR head wo con* [id number] IMPRESSION: 1. Mild small vessel changes. Moderate parenchymal volume loss. 2. No hemosiderin on the susceptibility weighted images. 3. Mild symmetric atrophy temporal lobes and hippocampal formations. 4. No other acute findings.
== END 2025-01-03 07:07 | disposition home or self-care (01) ==
LOC: RAD 07:07
PROVIDERS: PCP Family Medicine; Visit Provider Psychiatry & Neurology Neurology
DX: G25.0 Essential tremor (principal); G20.C Parkinsonism, unspecified; G31.89 Other specified degenerative diseases of nervous system
CPT/HCPCS: 70551